=== PATIENT | female | born 1970 | race Caucasian/White ===

== ENCOUNTER 2018-04-24 16:49 | Observation (INO) ==
[2018-04-24] MEDS ORDERED: Bisacodyl 10 MG Supp RECTAL PRN (19:41)
[2018-04-24] MEDS ORDERED: Prochlorperazine 25 MG Supp RECTAL PRN (19:41)
[2018-04-24] MEDS ORDERED: Acetaminophen 325 MG Tablet PO PRN (19:41)
[2018-04-24] MEDS ORDERED: Potassium Chloride Inj 20 MEQ in Sod Chloride 0.9% Inj 1,000 ML IV.CONT SCH (19:45)
[2018-04-24] MEDS: Senna/Docusate Sodium 8.6/50 MG Tablet PO SCH (22:12)
[2018-04-25 05:55] LABS: Chloride 108 meq/L (98-107); Sodium 142 meq/L (136-145)
[2018-04-25 06:00] LABS: Calcium 8.4 mg/dL (8.5-10.1)
[2018-04-25 06:01] LABS: Anion Gap 8 meq/L (5-15); Blood Urea Nitrogen 9 mg/dL (7-18); Carbon Dioxide 26.2 meq/L (21.0-32.0); Glucose,Random 91 mg/dL (74-106)
[2018-04-25 06:04] LABS: Glomerular Filtration Rate Greater Than 89 mL/min (>89)
[2018-04-25 09:20] VITALS: BP 127/67; PULSE 79; RESP 18; TEMP 96.8; O2SAT 99
[2018-04-25] MEDS: Senna/Docusate Sodium 8.6/50 MG Tablet PO SCH (09:49)
--- NOTE | 2018-04-25 10:00 | P.HP ---
History of Present Illness Primary Care Physician: No Primary Care Physician Chief Complaint: Vertigo History of Present Illness: This is a 48-year-old female with a history of anxiety and vertigo. She was in her usual state of health until yesterday morning when she stood up and acutely developed vertigo associated with nausea and non-bloody emesis. She was seen in the emergency room and despite Ativan and meclizine she continued to have systems and unable to ambulate and was advised hospitalization. Patient has history of vertigo last episode a year ago. She also has hearing impairment on the left side with constant buzzing. No fever, chills, ear pain or drainage. She also has been started on IV hydration. Overnight she felt better. She ambulated with physical therapy without any problems. She wants to go home. She has been advised to take scheduled meclizine for 1 more day of without symptoms then switched to as needed. Patient seen with son. All other systems reviewed negative. Review of Systems All other systems reviewed negative except as stated in HPI [facility] - History History Provided By: Patient - Medical History Medical History: Medical History (Last Reviewed 04/25/18 @ 17:05 by Turner Lagos MD) Vertigo - Surgical History Surgical History: Surgical History (Last Reviewed 04/25/18 @ 17:05 by Turner Lagos MD) Hx of tubal ligation - Family History Family History: Family History (Last Updated 04/25/18 @ 17:06 by Turner Lagos MD) Other CVA (cerebral vascular accident) - Tobacco History Second Hand Smoke Exposure: No Smoking Status: Never smoker - Alcohol History How Often Do You Have a Drink Containing Alcohol: Never - Substance Use History Substance History: No History of Abuse - Immunization History Tetanus Immunization: Unable to Assess Medications and Allergies Active Medications: Active Medications Acetaminophen (Tylenol) 650 mg PO Q4H PRN PRN Reason: Temp > 100.4 Al Hydroxide/Mg Hydroxide (Milk Of Magnesia Liq) 30 ml PO Q12H PRN PRN Reason: Mild Constipation Bisacodyl (Dulcolax Supp) 10 mg RECTAL DAILY PRN PRN Reason: SEVERE CONSITIPATION Potassium Chloride/Sodium Chloride (Ns + Kcl 20 Meq Inj) 1,000 mls @ 84 mls/hr IV.CONT .[id number] [facility] Last Admin: 04/25/18 09:44 Dose: Not Given Lactulose (Lactulose Liq) 30 ml PO DAILY PRN PRN Reason: SEVERE CONSITIPATION Meclizine HCl (Antivert) 25 mg PO Q6HR [facility] Last Admin: 04/25/18 05:22 Dose: 25 mg Metoclopramide HCl (Reglan Inj) 5 mg IV.PUSH Q6HR PRN; Protocol PRN Reason: NAUSEA OR VOMITING Ondansetron HCl (Zofran Inj) 4 mg IV.PUSH Q6H PRN PRN Reason: NAUSEA OR VOMITING Prochlorperazine (Compazine Supp) 25 mg RECTAL Q12HR PRN PRN Reason: NAUSEA OR VOMITING Senna/Docusate Sodium (Concepcion-Colace) 1 tab PO BID [facility] Last Admin: 04/25/18 09:49 Dose: Not Given Sennosides (Senokot) 17.2 mg PO Q12H PRN PRN Reason: Moderate Constipation Allergies Allergy/AdvReac Type Severity Reaction Status Date / Time No Known Allergies Allergy Unverified 04/24/18 17:01 Home Medications Medication Instructions Recorded Confirmed Type No Known Home Medications 04/24/18 04/24/18 History Exam Vital signs: Vital Signs 04/24/18 20:00 04/25/18 00:00 04/25/18 08:00 Temperature 98.1 F 98.0 F 96.8 F L Pulse Rate 73 75 79 Respiratory Rate 16 16 18 Blood Pressure 137/71 130/69 127/67 Pulse Oximetry 100 100 99 Intake & Output 04/24/18 04/25/18 04/25/18 18:59 06:59 18:59 Intake Total 600 / 600 Balance 600 / 600 Weight 63.8 kg Intake: IV 600 / 600 NS + KCl 20 mEq Inj 1,000 ML @ 600 / 600 84 mls/hr IV.CONT .[id number] [facility] Rx#:[id number] Other: # Voids 2 Date of Last Bowel Movement 04/23/18 Weight On Admission 63.503 kg Narrative: GENERAL: Well-developed, well-nourished in no distress SKIN: Warm and dry. HEAD: Atraumatic. Normocephalic. EYES: Pupils equal and round. No scleral icterus. No injection or drainage. ENT: No nasal bleeding or discharge. Mucous membranes pink and moist. NECK: Trachea midline. No JVD. CARDIOVASCULAR: Regular rate and rhythm. RESPIRATORY: No accessory muscle use. Clear to auscultation. Breath sounds equal bilaterally. GASTROINTESTINAL: Abdomen soft, non-tender, nondistended. MUSCULOSKELETAL: Extremities without clubbing, cyanosis, or edema. No obvious deformities. NEUROLOGICAL: Awake and alert. No obvious cranial nerve deficits. Motor grossly within normal limits. Five out of 5 muscle strength in the arms and legs. Normal speech. PSYCHIATRIC: Appropriate mood and affect; insight and judgment normal. Results - Labs CBC & Chem 7: 04/25/18 04:50 Labs: Laboratory Results - last 24 hr 04/25/18 04:50 Sodium 142 Potassium 4.0 Chloride 108 H Carbon Dioxide 26.2 Anion Gap 8 BUN 9 Creatinine 0.56 Estimated GFR Greater than 89 Random Glucose 91 Calcium 8.4 L D Caprini VTE Risk Assessment Caprini VTE Risk Assessment: No/Low Risk (score <= 1) Caprini Risk Assessment Model: Point Value = 1 Point Value = 2 Point Value = 3 Point Value = 5 Age 41-60 Minor surgery BMI > 25 kg/m2 Swollen legs Varicose veins or History of unexplained or recurrent spontaneous Oral contraceptives or hormone replacement Sepsis (< 1 month) Serious lung disease, including pneumonia (< 1 month) Abnormal pulmonary function Acute myocardial infarction Congestive heart failure (< 1 month) History of inflammatory bowel disease Medical patient at bed rest Age 61-74 Arthroscopic surgery Major open surgery (> 45 min) Laparoscopic surgery (> 45 min) Malignancy Confined to bed (> 72 hours) Immobilizing plaster cast Central venous access Age >= 75 History of VTE Family history of VTE Factor V Leiden Prothrombin [id number] Lupus anticoagulant Anticardiolipin antibodies Elevated serum homocysteine Heparin-induced thrombocytopenia Other congenital or acquired thrombophilia Stroke (< 1 month) Elective arthroplasty Hip, pelvis, or leg fracture Acute spinal cord injury (< 1 month) Prophylaxis Regimen: Total Risk Factor Score Risk Level Prophylaxis Regimen 0-1 Low Early ambulation 2 Moderate Order ONE of the following: *Sequential Compression Device (SCD) *Heparin 5000 units SQ BID 3-4 Higher Order ONE of the following medications: *Heparin 5000 units SQ TID *Enoxaparin/Lovenox 40 mg SQ daily (WT < 150 kg, CrCl > 30 mL/min) *Enoxaparin/Lovenox 30 mg SQ daily (WT < 150 kg, CrCl > 10-29 mL/min) *Enoxaparin/Lovenox 30 mg SQ BID (WT < 150 kg, CrCl > 30 mL/min) AND/OR *Sequential Compression Device (SCD) 5 or more Highest Order ONE of the following medications: *Heparin 5000 units SQ TID (Preferred with Epidurals) *Enoxaparin/Lovenox 40 mg SQ daily (WT < 150 kg, CrCl > 30 mL/min) *Enoxaparin/Lovenox 30 mg SQ daily (WT < 150 kg, CrCl > 10-29 mL/min) *Enoxaparin/Lovenox 30 mg SQ BID (WT < 150 kg, CrCl > 30 mL/min) AND *Sequential Compression Device (SCD) Assessment and Plan - Plan This is a 48-year-old female with a history of anxiety and vertigo. She presents with acute onset of vertigo associated with nausea and vomiting. She was hospitalized as she continued to have symptoms and was unable to ambulate despite Ativan and meclizine. Overnight she was hydrated with IV fluids and placed on scheduled meclizine. This morning she feels much better without symptoms ambulated in the hallway with physical therapy. She is stable for discharge Discharge Planning: Discharge patient to home Condition on discharge: Improved Regular Diet as tolerated Ad Neha activity no driving Rx written: Meclizine Follow-up with primary care physician and outpatient vestibular rehab
== END 2018-04-25 10:50 | disposition home or self-care (01) ==
LOC: PH3 21:13 → PHEDDLT 21:13
PROVIDERS: ADMIT Internal Medicine; ATTEND Internal Medicine